=== PATIENT | female | born 1950 | race Caucasian/White ===

== ENCOUNTER 2017-05-30 12:52 | Emergency (ER) | payer BC ==
[2017-05-30 13:08] VITALS: BP 144/83
--- NOTE | 2017-05-30 13:24 | ERNOTE ---
Upper Extremity HPI - General Extremities Pain Location: wrist: left Time Seen by Provider: 05/30/17 13:08 Source: patient Exam Limitations: no limitations - Immun/Allergies/Home Medications Immunizations: IMMUNIZATION HX Immunizations Up to Date Yes History of Influenza Vaccine No Hx Pneumococcal Vaccination No Allergies/Adverse Reactions: Allergies Allergy/AdvReac Type Severity Reaction Status Date / Time cyclobenzaprine HCl AdvReac CONSTIPATIO Verified 05/30/17 13:08 [From Flexeril] N sulfamethoxazole AdvReac Nausea Verified 05/30/17 13:08 [From Bactrim] trimethoprim [From Bactrim] AdvReac Nausea Verified 05/30/17 13:08 Home Medications: HOME MEDICATIONS Atenolol 25 mg PO BID 08/16/12 [Last Taken 02/19/13 20:00 25 MG] Carbamazepine [Tegretol] 200 mg PO TID 08/16/12 [Last Taken 02/19/13 20:00 200 MG] Multivitamin [Multivitamins] 1 each PO DAILY 08/16/12 [Last Taken 02/19/13 20: 00 1 EACH] Simvastatin 40 mg PO HS 08/16/12 [Last Taken 02/19/13 20:00 40 MG] Glucosamine HCl 1,500 mg PO QID 07/27/15 [Last Taken Unknown] Naproxen [Naprosyn] 500 mg PO BID #60 tablet 05/30/17 [Last Taken Unknown] predniSONE [Deltasone] 20 mg PO BID #10 tablet 05/30/17 [Last Taken Unknown] - History of Present Illness Narrative: Patient is starting to experience numbness in her fingertips primarily the thumb and the second third and fourth fingertips, decreased strength in that left hand and a feeling as though her hand is going to sleep. Onset of symptoms has been over the past several weeks and getting progressively worse. Occurred: other - over the past several weeks Location of Incident: home Severity: moderate Method of Injury: Reports: no apparent injury Loss of Consciousness: Reports: no loss of consciousness Modifying Factors - (Worsens): Reports: other - repetitive use Associated Symptoms: Reports: tingling, numbness distally, other - left hand Other Injuries: Reports: none Review of Systems - Review of Systems Constitutional: Present: See HPI EYE: Present: no symptoms reported ENT: Present: no symptoms reported Respiratory: Present: no symptoms reported Cardiology: Present: no symptoms reported Gastrointestinal/Abdominal: Present: no symptoms reported Genitourinary: Present: no symptoms reported Musculoskeletal: Present: See HPI Skin: Present: no symptoms reported Neurological: Present: See HPI Endocrine: Present: no symptoms reported Hematologic/Lymphatic: Present: no symptoms reported Psych: Present: no symptoms reported - Patient's Past Medical History Patient History - Medical: Seizures Patient History - Cardiac/Respiratory: Hypertension, Hyperlipidemia Patient History - Cancer: No Hx of Cancer Patient History - Surgical Procedures: Cholecystectomy, Hysterectomy, Tubal Ligation, T & A, Other - Social History Living Situations: home Smoking Status: Never smoker Have you smoked in the past 12 months: No Alcohol Use: none Drug Use: none - Immunizations Immunizations Up to Date: Yes Hx Pneumococcal Vaccination: No History of Influenza Vaccine: No Physical Exam - Physical Exam General Appearance: Present: wd/wn, alert, moderate distress Eye Exam: Normal inspection: bilateral, PERRL: bilateral Ears, Nose, Throat: Present: normal ENT inspection, H, normal pharynx Neck: Present: normal inspection, nontender Respiratory: Present: no respiratory distress, normal breath sounds, no accessory muscle use, chest nontender, lungs clear Cardiovascular/Chest: Present: regular rate, rhythm, no murmur, normal peripheral pulses Gastrointestinal/Abdominal: Present: normal bowel sounds, nontender, nondistended, soft, no organomegaly Rectal Exam: Present: deferred Back Exam: Present: normal inspection, normal range of motion Extremity Exam: Present: non-tender, normal range of motion, no edema, other - positive Tinel's, positive Phalen's and 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 Vital Signs: Vital Signs 05/30/17 13:05 Temperature 36.3 C L Pulse Rate 59 L Respiratory 14 Rate Blood Pressure 144/83 O2 Sat by Pulse 96 Oximetry - Progress/Reassessment Chief Complaint: Wrist Injury/Pain Plan - Plan Plan: Patient appears to have carpal tunnel syndrome however there may be a component of de Quervain's in there as well, so the patient will be placed in a wrist splint be given both steroids and nonsteroidal and she'll be given referral to orthopedic surgery Departure Clinical Impression: Carpal tunnel syndrome of left wrist - Departure Disposition: Home self-care Condition: Good Instructions: Carpal Tunnel Syndrome, [id number] Referrals: Everardo Mcelroy MD [Primary Care Provider] - Bran Julian MD [Staff Physician] - Prescriptions: Naproxen [Naprosyn] 500 mg PO BID #60 tablet predniSONE [Deltasone] 20 mg PO BID #10 tablet
== END 2017-05-30 13:46 | disposition home or self-care (01) ==
LOC: ER 12:52
PROC: 2W3FX1Z Immobilization of Left Hand using Splint (ICD-10-PCS; principal; 2017-05-30)
DX: G56.02 Carpal tunnel syndrome, left upper limb (principal); I10 Essential (primary) hypertension; E78.5 Hyperlipidemia, unspecified; G40.409 Other generalized epilepsy and epileptic syndromes, not intractable, without status epilepticus